=== PATIENT | female | born 1955 | race Caucasian/White ===

== ENCOUNTER 2018-01-09 10:33 | Emergency (ER) | payer MEDICARE ==
[~2018-01-09] VITALS: Ht 165.1 cm; Wt 83.9 kg
[~2018-01-09 10:33] MED LIST: ALBU1.257 IH; ALBU8.5H12 IH; ASPI-816 PO; ATR80PT PO; AZIT-1 PO; CALC-652 PO; CIPDEXPT RIGHT EAR; CIPR-214 PO; CYAN50TA3 PO; CYCL10TA29 PO; ESOM40CA42 PO; EZET10TA41 PO; FENO145T PO; FERR325T24 PO; GABA-549 PO; GUAI600T57 PO; HYDR15CR4 TP; INSU100C14 SQ; LANI SUBQ; LEVI SUBQ; LEVO-3 PO; LEVO-85 PO; LEVO88TA45 PO; LOSA25TA50 PO; LOSA50TA72 PO; METF-415 PO; METH4TAB66 PO; NAPR220C12 PO; NYST15CR32 TP; OXYM15MI14 ENA; PANT40TA65 PO; PRAV40TA78 PO; SUCR1TAB51 PO; TIZA-128 PO; TRAM-420 PO; TRIA15CR40 TP; VITA100T PO; ZOST19404 SQ
--- NOTE | 2018-01-09 10:45 | ER Report ---
History and Physical Time Seen By MD: 10:36 Hx. of Stated Complaint: pt reports pain and swelling in L ear, hears crackling and popping, pain in back of head, has had flu and sinusitis recently; feverish last night, pain swallowing HPI/ROS CHIEF COMPLAINT: left ear pain and drainage. HISTORY OF PRESENT ILLNESS: This is a 62 year old female. She awoke this morning with her hair by ear matted. Pain and swelling of the left ear. Has had problems in the past with ear infections. Having fevers off and on with this. Pain is severe. Allergies: Coded Allergies: oxycodone (Unverified Allergy, Severe, NAUSEA/VOMITING, 12/25/16) SOB Penicillins (Verified Allergy, Intermediate, RASH, 12/25/16) tamsulosin (Verified Allergy, Intermediate, NAUSEA/VOMITING, 12/25/16) latex (Unverified Allergy, Unknown, RASH, 12/25/16) Uncoded Allergies: adhesives (Allergy, Severe, RASH, 01/20/15) lorcet (Allergy, Severe, NAUSEA/VOMITING, 01/20/15) Home Meds Active Scripts Hydrocodone Bit/Acetaminophen (HYDROCODON-ACETAMINOPHEN 5-325) 1 Each Tablet, 1 EACH PO Q4H Y for PAIN, #8 TAB 0 Refills Prov:GABRIELA MORGAN MD 01/09/18 Ciprofloxacin Hcl (CIPROFLOXACIN HCL) 500 Mg Tablet, 500 MG PO Q12H, #14 TAB 0 Refills Prov:GABRIELA MORGAN MD 01/09/18 Ciprofloxacin/Dexamethasone 0.3%-0.1% Otic Stinson (CIPRODEX 0.3%-0.1% OTIC SUSP) 7.5 Ml Soln, 7.5 ML EACH EAR BID, #1 BOT 0 Refills Prov:GABRIELA MORGAN MD 01/09/18 Methylprednisolone (METHYLPREDNISOLONE) 4 Mg Tab.ds.pk, 4 MG PO DIRECTED, #1 PACK 0 Refills Prov:GABRIELA MORGAN MD 07/10/17 Insulin Detemir (LEVEMIR) 100 Unit/Ml Injs, 45 UNITS SUBQ QHS, #2 VIAL 1 Refill Prov:CORRIE MARQUIS MD 02/24/17 Metformin Hcl (METFORMIN HCL) 850 Mg Tablet, 1 TAB PO TID, #90 TAB 1 Refill Prov:CORRIE MARQUIS MD 02/23/17 Losartan Potassium (LOSARTAN POTASSIUM) 50 Mg Tablet, 1 TAB PO QDAY, #90 TAB 4 Refills Prov:CORRIE MARQUIS MD 01/30/17 Tizanidine Hcl (TIZANIDINE HCL) 4 Mg Tablet, 4 MG PO TID Y for MUSCLE SPASMS, # 20 TAB 0 Refills Prov:GABRIELA MORGAN MD 12/26/16 Methylprednisolone (METHYLPREDNISOLONE) 4 Mg Tab.ds.pk, 4 MG PO DIRECTED, #1 PACK 0 Refills Prov:GABRIELA MORGAN MD 12/26/16 Levothyroxine Sodium (LEVOTHYROXINE SODIUM) 100 Mcg Tablet, 1 TAB PO QDAY, #90 TAB 1 Refill Prov:MOI EDWARDS APRN 11/29/16 Ezetimibe (ZETIA) 10 Mg Tablet, 1 TAB PO QDAY, #90 TAB 1 Refill Prov:MOI EDWARDS APRN 11/29/16 Pravastatin Sodium (PRAVASTATIN SODIUM) 40 Mg Tablet, 1 TAB PO QHS, #90 TAB 1 Refill Prov:MOI EDWARDS APRN 11/29/16 Sucralfate (SUCRALFATE) 1 Gm Tablet, 1 GM PO ACHS, #120 TAB 11 Refills Prov:MOI EDWARDS APRN 11/29/16 NYSTATIN 176066 UNT/ML Topical Cream (NYSTATIN 059101 UNT/ML Topical Cream) 15 Gm Cream..g., 1 BRENDA TP TID, #60 GM 1 Refill Apply under breasts and to abdomen until rash has been resolved for 48 hours. Prov:MOI EDWARDS APRN 11/29/16 Insulin Aspart (NOVOLOG) 100 Unit/1 Ml Cartridge, 1-5 UNIT SQ TIDAC, #1 VIAL 1 Refill Per sliding scale Prov:MOI EDWARDS APRN 11/29/16 Fenofibrate Nanocrystallized (FENOFIBRATE) 145 Mg Tablet, 1 TAB PO QDAY, #30 TAB 11 Refills Prov:MOI EDWARDS APRN 08/29/16 Albuterol Sulfate (ALBUTEROL SULFATE) 1.25 Mg/3 Ml Vial.neb, 1.25 MG IH QID Y for WHEEZING, #1 BOX 1 Refill Prov:MOI EDWARDS APRN-Chapin 01/20/15 Guaifenesin (MUCINEX) 600 Mg Tablet.er, 1 TAB PO BID, #30 TAB 12 Refills Prov:MOI EDWARDS APRN-C 01/20/15 Reported Medications Cyanocobalamin (Vitamin B-12) (VITAMIN B-12) 50 Mcg Tablet, 1 TAB PO QDAY 01/20/15 Vitamin E Acid Succinate (VITAMIN E) 100 Unit Tablet, 1 TAB PO QDAY 01/20/15 Calcium Carbonate/Vitamin D3 (CALCIUM 500+D TABLET CHEW) 1 Each Tab.chew, 1 EACH PO DAILY, TAB.CHEW 05/26/14 Aspirin (Children's Aspirin) 81 Mg Tab.chew, 1 TAB PO DAILY 05/26/14 Discontinued Scripts Ciprofloxacin Hcl (CIPROFLOXACIN HCL) 500 Mg Tablet, 500 MG PO Q12H, #14 TAB 0 Refills Prov:GABRIELA MORGAN MD 07/10/17 Tramadol Hcl (TRAMADOL HCL) 50 Mg Tablet, 50 MG PO Q6H Y for PAIN, #12 TAB 0 Refills Prov:GABRIELA MORGAN MD 07/10/17 Ciprofloxacin/Dexamethasone 0.3%-0.1% Otic Stinson (CIPRODEX 0.3%-0.1% OTIC SUSP) 7.5 Ml Soln, 4 GTT RIGHT EAR BID for 7 Days, #1 BOTTLE 0 Refills Prov:GABRIELA MORGAN MD 07/10/17 Pantoprazole Sodium (PANTOPRAZOLE SODIUM) 40 Mg Tablet.dr, 1 TAB PO QDAY, #90 TAB.SR 3 Refills Prov:MOI EDWARDS APRN-[place] 11/29/16 Tramadol Hcl (TRAMADOL HCL) 50 Mg Tablet, 1 TAB PO TID Y for PAIN, #90 TAB 2 Refills Prov:MOI EDWARDS APRN-[place] 11/29/16 Zoster Vaccine Live/Pf (ZOSTAVAX VIAL) 19,400 Unit Vial, 0.64 ML SQ ONCE, #1 ML 0 Refills Prov:MOI EDWARDS APRN 11/29/16 Gabapentin (GABAPENTIN) 300 Mg Capsule, 300 MG PO TID, #90 CAPSULE 12 Refills Prov:MOI EDWARDS ANCILLARY SPECIALIST MANAGER PERIOPERATIVE-C 01/20/15 Reviewed Nurses Notes: Yes Hx Smoking: No Smoking Status: Never Smoker Hx Substance Use Disorder: No Hx Alcohol Use: No Constitutional Vital Sign - Last 24 Hours 01/09/18 01/09/18 01/09/18 01/09/18 10:37 10:37 10:38 10:43 Temp 97.8 Pulse 81 80 85 Resp 18 B/P (MAP) 168/108 168/108 (128) Pulse Ox 99 97 97 O2 Delivery Room Air 01/09/18 01/09/18 01/09/18 01/09/18 10:48 10:53 10:58 11:00 Pulse 70 72 70 B/P (MAP) 148/90 (109) Pulse Ox 98 96 97 01/09/18 01/09/18 01/09/18 01/09/18 11:03 11:08 11:13 11:18 Pulse 68 63 68 73 Pulse Ox 97 98 95 94 01/09/18 01/09/18 11:21 11:23 Pulse 69 B/P (MAP) 147/92 (110) 147/92 (110) Pulse Ox 96 O2 Delivery Room Air Physical Exam General Appearance: Alert, no distress. Eyes: Pupils equal and round no pallor or injection. ENT: Mucous membranes are moist. Oral mucosa is normal in appearance. Posterior oropharynx has no erythema or exudates. Right ear without swelling or pain. Left ear has swelling. Ear canal very swollen and can barely see into it. I can not see any perforation of the TM and it is red and bulging in appearance. DIFFERENTIAL DIAGNOSIS: After history and physical exam differential diagnosis was considered for otitis externa and media, no sign of rupture noted. Medical Decision Making ED Course/Re-evaluation ED Course Ear wick applied. Starting oral Cipro and topical CiproDex Decision to Disposition Date: Jan 09, 2018 Decision to Disposition Time: 11:11 Depart Departure Latest Vital Signs Vital Signs Date Time Temp Pulse Resp B/P (MAP) Pulse Ox O2 Delivery O2 Flow Rate FiO2 01/09/18 11:23 69 147/92 (110) 96 Room Air 01/09/18 10:37 97.8 18 Impression: Primary Impression: Otitis externa of left ear Additional Impression: Otitis media Condition: Improved Disposition: HOME OR SELF-CARE Referrals: MOI EDWARDS APRN MANAGER PERIOPERATIVE-C (PCP) New Scripts Hydrocodone Bit/Acetaminophen (HYDROCODON-ACETAMINOPHEN 5-325) 1 Each Tablet 1 EACH PO Q4H Y for PAIN, #8 TAB 0 Refills Prov: GABRIELA MORGAN MD 01/09/18 Ciprofloxacin Hcl (CIPROFLOXACIN HCL) 500 Mg Tablet 500 MG PO Q12H, #14 TAB 0 Refills Prov: GABRIELA MORGAN MD 01/09/18 Ciprofloxacin/Dexamethasone 0.3%-0.1% Otic Stinson (CIPRODEX 0.3%-0.1% OTIC SUSP) 7.5 Ml Soln 7.5 ML EACH EAR BID, #1 BOT 0 Refills Prov: GABRIELA MORGAN MD 01/09/18 Patient Instructions: Otitis Externa (ED), Otitis Media (ED) Additional Instructions: CiproDex drops, place 4-5 drops in left ear twice a day. Lay with your ear upright to let the drops seep into the ear. Ciprofloxacin 500mg twice a day. Lortab 5/325, one every 4 hours as needed for pain. Ibuprofen 200mg over the counter tablets, take 3-4 tablets every 8 hours as needed for pain. Follow-up next week with your primary care provider or with the ENT specialist, Dr. Abarca, for re-evaluation. Problem Qualifiers Primary Impression: Otitis externa of left ear Otitis externa type: diffuse Chronicity: acute Qualified Codes: H60.312 - Diffuse otitis externa, left ear Additional Impression: Otitis media Otitis media type: suppurative Chronicity: acute Laterality: left Recurrence: not specified as recurrent Spontaneous tympanic membrane rupture: without spontaneous rupture Qualified Codes: H66.002 - Acute suppurative otitis media without spontaneous rupture of ear drum, left ear GABRIELA MORGAN MD Jan 09, 2018 10:45
[2018-01-09] MEDS ORDERED: APAP/HYDROCODONE 325/5 TAB PO ONE (11:05)
[2018-01-09] MEDS ORDERED: CIPROFLOXACIN 500 MG TAB PO ONE (11:05)
[2018-01-09] MEDS ORDERED: CIPR-214 PO (11:13)
[2018-01-09] MEDS ORDERED: CIPDEXPT EACH EAR (11:13)
[2018-01-09] MEDS ORDERED: LOR5/325 PO (11:13)
[2018-01-09 11:23] VITALS: BP 147/92
== END 2018-01-09 11:22 | disposition home or self-care (01) ==
LOC: ER 10:45
DX: H60.312 Diffuse otitis externa, left ear (principal); H66.002 Acute suppurative otitis media without spontaneous rupture of ear drum, left ear
CPT/HCPCS: 99283; A9270

== ENCOUNTER 2018-05-07 17:45 | Emergency (ER) | payer MEDICARE ==
[~2018-05-07 17:45] MED LIST changes: -ASPI-816 PO; +ASPI-870 PO; +CIPDEXPT EACH EAR; -FENO145T PO; +FENO145T36 PO; +LOR5/325 PO
[2018-05-07] MEDS ORDERED: MORPHINE 2 MG/ML SYR IM ONE (18:00)
--- NOTE | 2018-05-07 18:04 | ER Report ---
History and Physical Time Seen By MD: 18:02 Hx. 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 Allergies: Coded Allergies: oxycodone (Unverified Allergy, Severe, NAUSEA/VOMITING, 12/25/16) SOB Penicillins (Verified Allergy, Intermediate, RASH, 12/25/16) tamsulosin (Verified Allergy, Intermediate, NAUSEA/VOMITING, 12/25/16) latex (Unverified Allergy, Unknown, RASH, 12/25/16) Uncoded Allergies: adhesives (Allergy, Severe, RASH, 01/20/15) lorcet (Allergy, Severe, NAUSEA/VOMITING, 01/20/15) Home Meds Active Scripts Tramadol Hcl (ULTRAM) 50 Mg Tablet, 50 MG PO Q4-6H for 7 Days, #20 TAB Prov:RODOLFO DIXON 05/07/18 Hydrocodone Bit/Acetaminophen (HYDROCODON-ACETAMINOPHEN 5-325) 1 Each Tablet, 1 EACH PO Q4H Y for PAIN, #8 TAB 0 Refills Prov:GABRIELA MORGAN MD 01/09/18 Methylprednisolone (METHYLPREDNISOLONE) 4 Mg Tab.ds.pk, 4 MG PO DIRECTED, #1 PACK 0 Refills Prov:GABRIELA MORGAN MD 07/10/17 Insulin Detemir (LEVEMIR) 100 Unit/Ml Injs, 45 UNITS SUBQ QHS, #2 VIAL 1 Refill Prov:CORRIE MARQUIS MD 02/24/17 Metformin Hcl (METFORMIN HCL) 850 Mg Tablet, 1 TAB PO TID, #90 TAB 1 Refill Prov:CORRIE MARQUIS MD 02/23/17 Losartan Potassium (LOSARTAN POTASSIUM) 50 Mg Tablet, 1 TAB PO QDAY, #90 TAB 4 Refills Prov:CORRIE MARQUIS MD 01/30/17 Tizanidine Hcl (TIZANIDINE HCL) 4 Mg Tablet, 4 MG PO TID Y for MUSCLE SPASMS, # 20 TAB 0 Refills Prov:GABRIELA MORGAN MD 12/26/16 Methylprednisolone (METHYLPREDNISOLONE) 4 Mg Tab.ds.pk, 4 MG PO DIRECTED, #1 PACK 0 Refills Prov:GABRIELA MORGAN MD 12/26/16 Levothyroxine Sodium (LEVOTHYROXINE SODIUM) 100 Mcg Tablet, 1 TAB PO QDAY, #90 TAB 1 Refill Prov:MOI EDWARDS APRN-C 11/29/16 Ezetimibe (ZETIA) 10 Mg Tablet, 1 TAB PO QDAY, #90 TAB 1 Refill Prov:MOI EDWARDS APRN-C 11/29/16 Pravastatin Sodium (PRAVASTATIN SODIUM) 40 Mg Tablet, 1 TAB PO QHS, #90 TAB 1 Refill Prov:MOI EDWARDS APRNC 11/29/16 Sucralfate (SUCRALFATE) 1 Gm Tablet, 1 GM PO ACHS, #120 TAB 11 Refills Prov:MOI EDWARDS APRNC 11/29/16 NYSTATIN 312947 UNT/ML Topical Cream (NYSTATIN 370765 UNT/ML Topical Cream) 15 Gm Cream..g., 1 BRENDA TP TID, #60 GM 1 Refill Apply under breasts and to abdomen until rash has been resolved for 48 hours. Prov:MOI EDWARDS APRN 11/29/16 Insulin Aspart (NOVOLOG) 100 Unit/1 Ml Cartridge, 1-5 UNIT SQ TIDAC, #1 VIAL 1 Refill Per sliding scale Prov:MOI EDWARDS APRNC 11/29/16 Fenofibrate Nanocrystallized (FENOFIBRATE) 145 Mg Tablet, 1 TAB PO QDAY, #30 TAB 11 Refills Prov:MOI EDWARDS APRN-C 08/29/16 Albuterol Sulfate (ALBUTEROL SULFATE) 1.25 Mg/3 Ml Vial.neb, 1.25 MG IH QID Y for WHEEZING, #1 BOX 1 Refill Prov:MOI EDWARDS APRN-C 01/20/15 Guaifenesin (MUCINEX) 600 Mg Tablet.er, 1 TAB PO BID, #30 TAB 12 Refills Prov:MOI EDWARDS APRNC 01/20/15 Reported Medications Cyanocobalamin (Vitamin B-12) (VITAMIN B-12) 50 Mcg Tablet, 1 TAB PO QDAY 01/20/15 Vitamin E Acid Succinate (VITAMIN E) 100 Unit Tablet, 1 TAB PO QDAY 01/20/15 Calcium Carbonate/Vitamin D3 (CALCIUM 500+D TABLET CHEW) 1 Each Tab.chew, 1 EACH PO DAILY, TAB.CHEW 05/26/14 Aspirin (Children's Aspirin) 81 Mg Tab.chew, 1 TAB PO DAILY 05/26/14 Discontinued Scripts Ciprofloxacin Hcl (CIPROFLOXACIN HCL) 500 Mg Tablet, 500 MG PO Q12H, #14 TAB 0 Refills Prov:GABRIELA MORGAN MD 01/09/18 Ciprofloxacin/Dexamethasone 0.3%-0.1% Otic Stinson (CIPRODEX 0.3%-0.1% OTIC SUSP) 7.5 Ml Soln, 7.5 ML EACH EAR BID, #1 BOT 0 Refills Prov:GABRIELA MORGAN MD 01/09/18 Past Medical/Surgical History DIABETIC HYPERTENSIVE, ARTHRITIS Reviewed Nurses Notes: Yes Hx Smoking: No Smoking Status: Never Smoker Hx Substance Use Disorder: No Hx Alcohol Use: No Family History of: HTN Constitutional Vital Sign - Last 24 Hours 05/07/18 05/07/18 05/07/18 05/07/18 17:45 17:56 18:00 18:00 Temp 98.1 Pulse ??? 67 Resp 16 B/P (MAP) 182/104 (130) 170/96 (120) 182/104 Pulse Ox 100 O2 Delivery Room Air 05/07/18 05/07/18 05/07/18 18:15 18:30 21:14 Pulse 77 93 Resp 20 B/P (MAP) 155/82 (106) 178/102 (127) Pulse Ox 98 96 O2 Delivery Room Air Physical Exam 62 YEAR IOLD FEMALE [place]. ALERT ANXIOUS MILD DISTRESS, HRR LUNGS CTA, ABRASION ASHA KNEE EFFUSION RIGHT KNEE . POS DRAWER Medical Decision Making ED Course/Re-evaluation ED Course Plain films of the right knee showed a possible line through the patella didn't CAT scan which shows no fracture extensive arthritic changes Re-evaluation Knee immobilizer placed in the emergency room was placed on crutches she did receive 2 mg of IM morphine in the emergency room us and Ultram Procedure Knee immobilizer placed in the ER CMS intact distally after placement and crutch want walking instructions given Decision to Disposition Date: May 07, 2018 Decision to Disposition Time: 21:19 Depart Departure Latest Vital Signs Vital Signs Date Time Temp Pulse Resp B/P (MAP) Pulse Ox O2 Delivery O2 Flow Rate FiO2 05/07/18 21:14 93 20 178/102 (127) 96 Room Air 05/07/18 18:00 98.1 Impression: Primary Impression: Right knee sprain Condition: Improved Disposition: HOME OR SELF-CARE Referrals: MOI EDWARDS APRN-C (PCP) 1 Week New Scripts Tramadol Hcl (ULTRAM) 50 Mg Tablet 50 MG PO Q4-6H for 7 Days, #20 TAB Prov: RODOLFO DIXON 05/07/18 Patient Instructions: Knee Pain (ED) Additional Instructions: WEAR IMMOBILIZER AND USE CRUTCHES UNTIL SEEN BY PCP. NO FRACTURE KNEE SPRAIN RODOLFO DIXON May 07, 2018 18:04
[2018-05-07] MEDS ORDERED: traMADol 50 MG TAB PO ONE (18:55)
--- NOTE | 2018-05-07 19:13 | RADIOLOGY IMAGING REPORT ---
FACILITY: [facility] - [place] PATIENT NAME: Emily Elaine : 1955 MR: [id number] V: [id number] EXAM DATE: ORDERING PHYSICIAN: RODOLFO DIXON TECHNOLOGIST: Location: [facility] - [place] Patient: Emily Elaine : 1955 Visit/Account:[id number] Date of Sevice: 05/07/2018 KNEE 4 VIEW RIGHT HISTORY: FALL 4 view examination of the right knee. FINDINGS: No acute fracture the distal right femur or proximal tibia/fibula. There or chondrocalcinosis changes noted within both menisci with prominent marginal osteophytes noted within the knee joint particular ly with respect to the patellofemoral joint superiorly. Patellar sunrise views there is a prominent d ystrophic calcification extending from the lateral facet.. There is a linear lucency projecting throu gh the patella on the patellar sunrise views along its lateral which does not have a corresponding ob vious change the lateral view. Overlapping femoral condyle is obscuring detail of the patella on the AP and oblique views. Prominent suprapatellar joint effusion. IMPRESSION: 1. 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 No obvious acute fracture. Probable fortuitous artifact producing linear lucency through the lateral pole of the patella. Recommend clinical correlation and additional imaging if clinically ind icated. 2. Prominent suprapatellar joint effusion. Report Dictated By: Kadeem Aleman MD at 05/07/2018 7:01 PM Report E-Signed By: Kadeem Aleman MD at 05/07/2018 7:09 PM WSN:[id number]
--- NOTE | 2018-05-07 20:40 | RADIOLOGY IMAGING REPORT ---
FACILITY: [facility] [place] PATIENT NAME: Emily Elaine : 1955 MR: [id number] V: [id number] EXAM DATE: ORDERING PHYSICIAN: RODOLFO DIXON TECHNOLOGIST: Location: [facility] [place] Patient: Emily Elaine : 1955 Visit/Account:[id number] Date of Sevice: 05/07/2018 KNEE RIGHT W/O CONTRAST HISTORY: Fall CT scan of the left knee with multiple axial slices from the distal femur through the proximal tibia/ fibula. Reconstructed sagittal and coronal scans obtained as well. One of the following dose optimization techniques was utilized in the performance of this exam: Autom ated exposure control; adjustment of the mA and/or kV according to the patient's size; or use of an i terative reconstruction technique. Specific details can be referenced in the facility's radiology C T exam operational policy. FINDINGS: Study demonstrates no obvious acute fracture. There are significant degenerative changes manifesting as significant ossific spurring changes most notably along the anterior inferior aspect of the femur. Additional marginal osteophytes are seen along both the medial and lateral joint compartments as wel l as spurring changes seen along both the medial lateral tibial spines. Dystrophic calcifications and osteochondral body seen lateral to the lateral patellar pole of the patella. Osteochondral bodies no jose within the joint space. The visualized lucency seen on the plain film represented a fortuitous ar tifact. No patellar fracture seen. Prominent joint effusion reidentified. Chondrocalcinosis changes noted within the menisci. IMPRESSION: 1. Severe tricompartment DJD changes most notably involving the patellofemoral joint. Joint effusion. Changes consistent with CPPD. Osteochondral bodies. No evidence of acute fracture. Report Dictated By: Kadeem Aleman MD at 05/07/2018 8:25 PM Report E-Signed By: Kadeem Aleman MD at 05/07/2018 8:35 PM WSN:[id number]
[2018-05-07] MEDS ORDERED: TRAM-627 PO (20:58)
[2018-05-07 21:14] VITALS: BP 178/102
== END 2018-05-07 21:19 | disposition home or self-care (01) ==
LOC: ER 18:33
DX: S83.91XA Sprain of unspecified site of right knee, initial encounter (principal); M17.11 Unilateral primary osteoarthritis, right knee; M25.461 Effusion, right knee; W18.30XA Fall on same level, unspecified, initial encounter
CPT/HCPCS: 73564; 73700; 96372; 99284; A9270; J2270; L1830

== ENCOUNTER 2018-05-08 11:57 | Emergency (ER) | payer MEDICARE ==
[~2018-05-08 11:57] MED LIST changes: -DICL-195 PO; -NITR-105 PO; -ONDA4TAB PO
--- NOTE | 2018-05-08 12:02 | ER Report ---
History and Physical Time Seen By MD: 12:02 (RICARDO MONTOYA DO) HPI/ROS CHIEF COMPLAINT: Fall, right hip pain HISTORY OF PRESENT ILLNESS: Patient is a 62-year-old female here with complaints of a fall at home with right hip pain. Fall occurred shortly prior to arrival. She reports that she was able to crawl until she was able to find something to help herself up. She had a recent fall and was in a knee immobilizer with crutches. He does not recall how she fell this time however she reports that she "just went down". Patient also may have struck her head on the ground but is unsure and she also complains of mild pain in the midline of her C-spine. Denies chest pain, shortness of breath, fevers or chills. REVIEW OF SYSTEMS: Constitutional: No fever, no chills. Eyes: No discharge. ENT: No sore throat. Cardiovascular: No chest pain, no palpitations. Respiratory: No cough, no shortness of breath. Gastrointestinal: No abdominal pain, no vomiting. Genitourinary: No hematuria. Musculoskeletal: Moderate right hip pain Skin: No rashes. Neurological: Mild headache. (RICARDO MONTOYA DO) Allergies: Coded Allergies: oxycodone (Unverified Allergy, Severe, NAUSEA/VOMITING, 12/25/16) SOB Penicillins (Verified Allergy, Intermediate, RASH, 12/25/16) tamsulosin (Verified Allergy, Intermediate, NAUSEA/VOMITING, 12/25/16) latex (Unverified Allergy, Unknown, RASH, 12/25/16) hydrocodone (Verified Adverse Reaction, Severe, NAUSEA/VOMITING, 05/08/18) Uncoded Allergies: adhesives (Allergy, Severe, RASH, 01/20/15) Home Meds Active Scripts Tramadol Hcl (ULTRAM) 50 Mg Tablet, 50 MG PO Q4-6H for 7 Days, #20 TAB Prov:RODOLFO DIXON 05/07/18 Hydrocodone Bit/Acetaminophen (HYDROCODON-ACETAMINOPHEN 5-325) 1 Each Tablet, 1 EACH PO Q4H Y for PAIN, #8 TAB 0 Refills Prov:GABRIELA MORGAN MD 01/09/18 Methylprednisolone (METHYLPREDNISOLONE) 4 Mg Tab.ds.pk, 4 MG PO DIRECTED, #1 PACK 0 Refills Prov:GABRIELA MORGAN MD 07/10/17 Insulin Detemir (LEVEMIR) 100 Unit/Ml Injs, 45 UNITS SUBQ QHS, #2 VIAL 1 Refill Prov:CORRIE MARQUIS MD 02/24/17 Metformin Hcl (METFORMIN HCL) 850 Mg Tablet, 1 TAB PO TID, #90 TAB 1 Refill Prov:CORRIE MARQUIS MD 02/23/17 Losartan Potassium (LOSARTAN POTASSIUM) 50 Mg Tablet, 1 TAB PO QDAY, #90 TAB 4 Refills Prov:CORRIE MARQUIS MD 01/30/17 Tizanidine Hcl (TIZANIDINE HCL) 4 Mg Tablet, 4 MG PO TID Y for MUSCLE SPASMS, # 20 TAB 0 Refills Prov:GABRIELA MORGAN MD 12/26/16 Methylprednisolone (METHYLPREDNISOLONE) 4 Mg Tab.ds.pk, 4 MG PO DIRECTED, #1 PACK 0 Refills Prov:GABRIELA MORGAN MD 12/26/16 Levothyroxine Sodium (LEVOTHYROXINE SODIUM) 100 Mcg Tablet, 1 TAB PO QDAY, #90 TAB 1 Refill Prov:MOI EDWARDS APRN-Chapin 11/29/16 Ezetimibe (ZETIA) 10 Mg Tablet, 1 TAB PO QDAY, #90 TAB 1 Refill Prov:MOI EDWARDS APRN 11/29/16 Pravastatin Sodium (PRAVASTATIN SODIUM) 40 Mg Tablet, 1 TAB PO QHS, #90 TAB 1 Refill Prov:MOI EDWARDS APRN 11/29/16 Sucralfate (SUCRALFATE) 1 Gm Tablet, 1 GM PO ACHS, #120 TAB 11 Refills Prov:MOI EDWARDS APRN-[facility] 11/29/16 NYSTATIN 003456 UNT/ML Topical Cream (NYSTATIN 858384 UNT/ML Topical Cream) 15 Gm Cream..g., 1 BRENDA TP TID, #60 GM 1 Refill Apply under breasts and to abdomen until rash has been resolved for 48 hours. Prov:MOI EDWARDS APRN 11/29/16 Insulin Aspart (NOVOLOG) 100 Unit/1 Ml Cartridge, 1-5 UNIT SQ TIDAC, #1 VIAL 1 Refill Per sliding scale Prov:MOI EDWARDS APRN 11/29/16 Fenofibrate Nanocrystallized (FENOFIBRATE) 145 Mg Tablet, 1 TAB PO QDAY, #30 TAB 11 Refills Prov:MOI EDWARDS APRN 08/29/16 Albuterol Sulfate (ALBUTEROL SULFATE) 1.25 Mg/3 Ml Vial.neb, 1.25 MG IH QID Y for WHEEZING, #1 BOX 1 Refill Prov:MOI EDWARDS APRN 01/20/15 Guaifenesin (MUCINEX) 600 Mg Tablet.er, 1 TAB PO BID, #30 TAB 12 Refills Prov:MOI EDWARDS APRN 01/20/15 Reported Medications Cyanocobalamin (Vitamin B-12) (VITAMIN B-12) 50 Mcg Tablet, 1 TAB PO QDAY 01/20/15 Vitamin E Acid Succinate (VITAMIN E) 100 Unit Tablet, 1 TAB PO QDAY 01/20/15 Calcium Carbonate/Vitamin D3 (CALCIUM 500+D TABLET CHEW) 1 Each Tab.chew, 1 EACH PO DAILY, TAB.CHEW 05/26/14 Aspirin (Children's Aspirin) 81 Mg Tab.chew, 1 TAB PO DAILY 05/26/14 Discontinued Scripts Ciprofloxacin Hcl (CIPROFLOXACIN HCL) 500 Mg Tablet, 500 MG PO Q12H, #14 TAB 0 Refills Prov:GABRIELA MORGAN MD 01/09/18 Ciprofloxacin/Dexamethasone 0.3%-0.1% Otic Stinson (CIPRODEX 0.3%-0.1% OTIC SUSP) 7.5 Ml Soln, 7.5 ML EACH EAR BID, #1 BOT 0 Refills Prov:GABRIELA MORGAN MD 01/09/18 Hx Smoking: No Smoking Status: Never Smoker Hx Substance Use Disorder: No Hx Alcohol Use: No (RICARDO MONTOYA DO) Constitutional Vital Sign - Last 24 Hours 05/08/18 05/08/18 05/08/18 05/08/18 11:57 11:58 11:59 12:12 Temp 98.0 Pulse ??? 120 119 Resp 18 B/P (MAP) 182/115 (137) 182/115 Pulse Ox 97 97 O2 Delivery Room Air 05/08/18 05/08/18 05/08/1819/18 12:15 12:27 12:38 12:42 Pulse 124 123 Resp 13 13 B/P (MAP) 181/122 (141) 197/118 (144) Pulse Ox 95 95 18 18 /18 05/08/18 12:45 13:00 13:12 13:15 Pulse 120 Resp 17 B/P (MAP) ???/??? (1665) ???/??? (1665) 192/113 (139) Pulse Ox 93 18 18 18 05/08/18 13:27 13:30 13:42 13:45 Pulse 125 126 Resp 27 13 B/P (MAP) 195/102 (133) 196/115 (142) Pulse Ox 94 94 05/08/18 05/08/18 05/08/18 05/08/18 14:00 14:15 14:20 14:30 Pulse 116 Resp 22 B/P (MAP) 197/112 (140) 188/111 (136) 187/105 (132) Pulse Ox 93 05/08/1818 18 05/08/18 14:35 14:45 14:50 15:00 Temp 99.0 Pulse 126 121 Resp 19 B/P (MAP) 189/82 (117) Pulse Ox 94 05/08/1818 05/08/18 05/08/18 15:00 15:05 15:06 15:15 Pulse ??? B/P (MAP) ???/??? (166) 157/93 (114) 177/109 (131) 05/08/18 05/08/18 15:20 15:21 Pulse 122 B/P (MAP) 179/102 (127) Pulse Ox 96 (DEVIKA SHELTON BUSINESS ADMINISTRATOR) Physical Exam General Appearance: The patient is alert, has no immediate need for airway protection and no signs of toxicity. Mild distress Eyes: Pupils equal and round no pallor or injection. ENT, Mouth: Mucous membranes are moist. Respiratory: There are no retractions, lungs are clear to auscultation. Cardiovascular: Regular rate and rhythm. [ ] Gastrointestinal: Abdomen is soft and non tender, no masses, bowel sounds normal. Neurological: Moving all extremities spontaneously, no focal neurological deficits, mild weakness to the right lower extremity secondary to pain. Skin: Warm and dry, no rashes. Musculoskeletal: Neck is supple non tender. + Moderate tenderness of the right hip with range of motion testing DIFFERENTIAL DIAGNOSIS: After history and physical exam differential diagnosis was considered for fracture, contusion, sprain (RICARDO MONTOYA DO) Medical Decision Making EKG/Imaging Imaging ADDENDUM #1 Also noted on initial review but omitted from my initial dictation is a small amount of nonspecific fluid along mastoids on the right. Report Dictated By: Sergei Mcbride MD at 05/08/2018 2:55 PM Report E-Signed By: Sergei Mcbride MD at 05/08/2018 2:56 PM ORIGINAL REPORT EXAMINATION: CT Cervical Spine Without Contrast 05/08/2018 12:08 PM HISTORY: fall COMPARISON STUDIES: CT head today is reported separately. Cervical spine CT 05/26 TECHNIQUE: Axial images were obtained from the skull base through the upper thoracic spine without IV contrast administration. Coronal and sagittal reformatted images were obtained from the axial source data. One of the following dose optimization techniques was utilized in the performance of this exam: Automated exposure control; adjustment of the mA and/ or kV according to the patient's size; or use of an iterative reconstruction technique. Specific details can be referenced in the facility's radiology CT exam operational policy. FINDINGS: Pre-vertebral soft tissues: negative Alignment: negative Vertebral bodies: negative Posterior elements: No acute finding. Stable small sclerotic T1 posterior spinous process bony focus is likely an incidental bone island. Disc Spaces: Multilevel spondylosis most notably at C4-5. Visualized soft tissues anterior neck: Carotid atherosclerosis. Nearly 2 cm hyperdense left lobe thyroid nodule. Visualized lung / mediastinum: negative IMPRESSION: 1. No acute bony injury of the cervical spine. 2. Hyperdense left lobe thyroid nodule may have grown comparing to 05/26/2014. Ultrasound would define this more thoroughly with respect to indication for FNA assessment. The patient had only subcentimeter left lobe thyroid nodules demonstrated by ultrasound in 2013. Report Dictated By: Sergei Mcbride MD at 05/08/2018 2:01 PM Report E-Signed By: Sergei Mcbride MD at 05/08/2018 2:08 PM Exam type: FEMUR RIGHT History: fall Comparison: None. Findings: AP and lateral views of the right femur demonstrate no evidence of acute fracture or dislocation. No significant arthritic change identified at the right hip joint. There are tricompartmental degenerative changes at the right knee IMPRESSION: 1. No evidence of acute fracture-dislocation involving the right femur Tricompartmental degenerative changes of the right knee Report Dictated By: Vanessa Armendariz MD at 05/08/2018 1:20 PM Report E-Signed By: Vanessa Armendariz MD at 05/08/2018 1:21 PM EXAMINATION: Head CT without intravenous contrast HISTORY: Fall TECHNIQUE: Contiguous axial images were obtained from the skull base to the vertex without intravenous contrast. Sagittal and coronal reformatted images are also submitted. Dose Lowering Technique One of the following dose optimization techniques was utilized in the performance of this exam: Automated exposure control; adjustment of the mA and/ or kV according to the patient's size; or use of an iterative reconstruction technique. Specific details can be referenced in the facility's radiology CT exam operational policy. COMPARISON: None. FINDINGS: Brain volume: Normal. Ventricles: Normal. Acute ischemic changes: None. Hemorrhage: None. Masses / edema: None. Kendrick-white: Negative. White matter: Normal. Vessels: Negative. Extra-axial: Negative. Calvarium / scalp: Negative. Skull base / visualized face: Negative. Visualized sinuses / orbits: Small amount of fluid is noted in the right mastoid air cells IMPRESSION: Unremarkable head CT without contrast other than incidental note of a small amount of fluid in the right mastoid air cells Report Dictated By: Vanessa Armendariz MD at 05/08/2018 1:45 PM Report E-Signed By: Vanessa Armendariz MD at 05/08/2018 1:50 PM Exam type: HIP RIGHT History: fall Comparison: None. Findings: Two views of the right hip reveal no evidence of acute fracture or dislocation. No significant arthritic change identified at the right hip. Incidentally noted are moderate degenerative changes of the visualized lower lumbar spine. IMPRESSION: 1. No evidence of acute fracture-dislocation involving the right hip Report Dictated By: Vanessa Armendariz MD at 05/08/2018 1:21 PM Report E-Signed By: Vanessa Armendariz MD at 05/08/2018 1:22 PM (DEVIKA SHELTON) ED Course/Re-evaluation ED Course I did take over this patient for Dr. Montoya at the end of her visit. Patient had negative imaging, CT scans as well as x-rays. I discussed findings with patient. Patient states she is able to get up and move around without any difficulty. We will go ahead and discharge patient home at this time. She is to follow-up with her primary care provider. She is return to emergency room if condition worsens. Patient verbalized understanding and agreement with plan. Please refer to Dr. Montoya's note for remainder of visit Decision to Disposition Date: May 08, 2018 Decision to Disposition Time: 15:15 (DEVIKA SHELTON) Depart Departure Latest Vital Signs Vital Signs Date Time Temp Pulse Resp B/P (MAP) Pulse Ox O2 Delivery O2 Flow Rate FiO2 05/08/18 15:21 179/102 (127) 05/08/18 15:20 122 96 05/08/18 15:00 99.0 05/08/18 14:50 19 05/08/18 11:59 Room Air (DEVIKA SHELTON) Impression: Primary Impression: Fall Condition: Improved Disposition: HOME OR SELF-CARE Referrals: MOI EDWARDS APRN-Chapin (PCP) Patient Instructions: Fall Prevention (ED) Additional Instructions: Follow-up with your family doctor next week. Please return promptly if you develop worsening pain, fatigue, fevers or chills. Get plenty of rest. Take Tylenol or Ibuprofen as needed for pain. Return to the ER if condition worsens. Problem Qualifiers Primary Impression: Fall Encounter type: initial encounter Qualified Codes: W19.XXXA - Unspecified fall, initial encounter RICARDO MONTOYA DO May 08, 2018 12:02 DEVIKA SHELTON May 08, 2018 15:17
[2018-05-08] MEDS ORDERED: DIPHTH/TETANUS/ACEL. PERTUSSIS IM ONLY ONE (12:20)
--- NOTE | 2018-05-08 12:45 | EKG ---
FACILITY: [facility] - [place] PATIENT NAME: JENNIFER LOPEZ : [id number] MR: [id number] V: [id number] EXAM DATE: ORDERING PHYSICIAN: RICARDO OLIVER TECHNOLOGIST: DILIP Pina Reason : Blood Pressure : / mmHG Vent. Rate : 124 BPM Atrial Rate : 124 BPM P-R Int : 150 ms QRS Dur : 094 ms QT Int : 318 ms P-R-T Axes : 047 -56 073 degrees QTc Int : 456 ms Sinus tachycardia Possible left atrial enlargement Left axis deviation Nonspecific ST-T findings Virtually no R wave progression through the precordial leads - question previous infarct Nonspecific interventricular conduction delay Abnormal ECG No previous ECGs available Confirmed by YANI CROWLEY ([id number]) on 05/08/2018 4:17:54 PM Referred By: BENITO Confirmed By:YANI CROWLEY
--- NOTE | 2018-05-08 13:25 | RADIOLOGY IMAGING REPORT ---
FACILITY: [facility] PATIENT NAME: Emily Elaine : 1955 MR: [id number] V: [id number] EXAM DATE: ORDERING PHYSICIAN: RICARDO OLIVER TECHNOLOGIST: Location: [facility] - [place] Patient: Emily Elaine : 1955 Visit/Account:[id number] Date of Sevice: 05/08/2018 Exam type: FEMUR RIGHT History: fall Comparison: None. Findings: AP and lateral views of the right femur demonstrate no evidence of acute fracture or dislocation. No significant arthritic change identified at the right hip joint. There are tricompartmental degenera tive changes at the right knee IMPRESSION: 1. No evidence of acute fracture-dislocation involving the right femur Tricompartmental degenerative changes of the right knee Report Dictated By: Vanessa Armendariz MD at 05/08/2018 1:20 PM Report E-Signed By: Vanessa Armendariz MD at 05/08/2018 1:21 PM WSN:[email or web address]
--- NOTE | 2018-05-08 13:28 | RADIOLOGY IMAGING REPORT ---
FACILITY: [facility] - [place] PATIENT NAME: Emliy Elaine : 1955 MR: [id number] V: [id number] EXAM DATE: ORDERING PHYSICIAN: RICARDO OLIVER TECHNOLOGIST: Location: [facility] Patient: Emily Elaine : 1955 Visit/Account:[id number] Date of Sevice: 05/08/2018 Exam type: HIP RIGHT History: fall Comparison: None. Findings: Two views of the right hip reveal no evidence of acute fracture or dislocation. No significant arthr itic change identified at the right hip. Incidentally noted are moderate degenerative changes of the visualized lower lumbar spine. IMPRESSION: 1. No evidence of acute fracture-dislocation involving the right hip Report Dictated By: Vanessa Armendariz MD at 05/08/2018 1:21 PM Report E-Signed By: Vanessa Armendariz MD at 05/08/2018 1:22 PM WSN:[email or web address]
[2018-05-08] MEDS ORDERED: KETOROLAC 30 MG/ML VIAL IVP ONE (13:45)
--- NOTE | 2018-05-08 13:55 | RADIOLOGY IMAGING REPORT ---
FACILITY: [facility] PATIENT NAME: Emily Elaine : 1955 MR: [id number] V: [id number] EXAM DATE: ORDERING PHYSICIAN: RICARDO OLIVER TECHNOLOGIST: Location: [facility] Patient: Emily Elaine : 1955 Visit/Account:[id number] Date of Sevice: 05/08/2018 EXAMINATION: Head CT without intravenous contrast HISTORY: Fall TECHNIQUE: Contiguous axial images were obtained from the skull base to the vertex without intraven ous contrast. Sagittal and coronal reformatted images are also submitted. Dose Lowering Technique One of the following dose optimization techniques was utilized in the performance of this exam: Autom ated exposure control; adjustment of the mA and/or kV according to the patient's size; or use of an i terative reconstruction technique. Specific details can be referenced in the facility's radiology C T exam operational policy. COMPARISON: None. FINDINGS: Brain volume: Normal. Ventricles: Normal. Acute ischemic changes: None. Hemorrhage: None. Masses / edema: None. Kendrick-white: Negative. White matter: Normal. Vessels: Negative. Extra-axial: Negative. Calvarium / scalp: Negative. Skull base / visualized face: Negative. Visualized sinuses / orbits: Small amount of fluid is noted in the right mastoid air cells IMPRESSION: Unremarkable head CT without contrast other than incidental note of a small amount of fluid in the ri ght mastoid air cells Report Dictated By: Vanessa Armendariz MD at 05/08/2018 1:45 PM Report E-Signed By: Vanessa Armendariz MD at 05/08/2018 1:50 PM WSN:[email or web address]
--- NOTE | 2018-05-08 14:13 | RADIOLOGY IMAGING REPORT ---
FACILITY: [facility] PATIENT NAME: Emily Elaine : 1955 MR: [id number] V: [id number] EXAM DATE: ORDERING PHYSICIAN: RICAROD OLIVER TECHNOLOGIST: Location: [facility] - [place] Patient: Emily Elaine : 1955 Visit/Account:[id number] Date of Sevice: 05/08/2018 ADDENDUM #1 Also noted on initial review but omitted from my initial dictation is a small amount of nonspecific f luid along mastoids on the right. Report Dictated By: Sergei Mcbride MD at 05/08/2018 2:55 PM Report E-Signed By: Sergei Mcbride MD at 05/08/2018 2:56 PM ORIGINAL REPORT EXAMINATION: CT Cervical Spine Without Contrast 05/08/2018 12:08 PM HISTORY: fall COMPARISON STUDIES: CT head today is reported separately. Cervical spine CT 05/26/2014 TECHNIQUE: Axial images were obtained from the skull base through the upper thoracic spine without I V contrast administration. Coronal and sagittal reformatted images were obtained from the axial [facility] e data. One of the following dose optimization techniques was utilized in the performance of this exam: Autom ated exposure control; adjustment of the mA and/or kV according to the patient's size; or use of an i terative reconstruction technique. Specific details can be referenced in the facility's radiology C T exam operational policy. FINDINGS: Pre-vertebral soft tissues: negative Alignment: negative Vertebral bodies: negative Posterior elements: No acute finding. Stable small sclerotic T1 posterior spinous process bony focus is likely an incidental bone island. Disc Spaces: Multilevel spondylosis most notably at C4-5. Visualized soft tissues anterior neck: Carotid atherosclerosis. Nearly 2 cm hyperdense left lobe thyr oid nodule. Visualized lung / mediastinum: negative IMPRESSION: 1. No acute bony injury of the cervical spine. 2. Hyperdense left lobe thyroid nodule may have grown comparing to 05/26/2014. Ultrasound would define this more thoroughly with respect to indication for FNA assessment. The patient had only subcentimete r left lobe thyroid nodules demonstrated by ultrasound in 2013. Report Dictated By: Sergei Mcbride MD at 05/08/2018 2:01 PM Report E-Signed By: Sergei Mcbride MD at 05/08/2018 2:08 PM WSN:[id number]
[2018-05-08] MEDS ORDERED: KETOROLAC 15 MG/ML VIAL IVP ONE (15:15)
[2018-05-08] MEDS ORDERED: ACETAMINOPHEN 500 MG TAB PO ONE (15:20)
[2018-05-08 15:21] VITALS: BP 179/102
== END 2018-05-08 15:40 | disposition home or self-care (01) ==
LOC: ER 12:05
DX: M25.551 Pain in right hip (principal); M54.2 Cervicalgia; W18.30XA Fall on same level, unspecified, initial encounter
CPT/HCPCS: 70450; 72125; 73502; 73552; 90471; 90715; 93005; 96374; 99285; A9270; J1885; L0172

== ENCOUNTER → 2018-05-08 | Outpatient (CLI) | payer MEDICARE ==
[~2018-05-08] MED LIST changes: +DICL-195 PO; +NITR-105 PO; +ONDA4TAB PO; +TRAM-627 PO
== END ==
LOC: AMB 11:28
PROVIDERS: ATTEND Nurse Practitioner
DX: M25.551 Pain in right hip (principal); W19.XXXA Unspecified fall, initial encounter
CPT/HCPCS: A0425; A0427

== ENCOUNTER 2018-05-10 11:57 | Emergency (ER) | payer MEDICARE ==
[~2018-05-10 11:57] MED LIST changes: -DICL-195 PO; -NITR-105 PO; -ONDA4TAB PO
--- NOTE | 2018-05-10 12:07 | ER Report ---
History and Physical Time Seen By MD: 12:06 Hx. of Stated Complaint: HYPERGLYCEMIA, N/V, DIZZINESS HPI/ROS CHIEF COMPLAINT: Dizziness, nausea vomiting HISTORY OF PRESENT ILLNESS: 62-year-old female patient presents to emergency room with complaint of dizziness, nausea or vomiting. Patient states she's had some transient dizziness since she had a fall the other day. She states that she also has noted that she has a headache. She states the headache itself is not tender to touch, however the pain is deeper. She denies having any diarrhea , however she has been incredibly nauseous today and vomiting. She states that she did not start vomiting until she gone to her primary care provider. States she was there about 30 minutes and felt very nauseous, then she vomited for approximately 30 minutes straight. She states that she's not had any fevers or chills. She denies having any chest pain or shortness of breath. She states she is not taking any medication outside of what has been prescribed for for this. REVIEW OF SYSTEMS: Respiratory: No cough, no dyspnea. Cardiovascular: No chest pain, no palpitations. Gastrointestinal: As noted above. Musculoskeletal: As noted above Allergies: Coded Allergies: oxycodone (Unverified Allergy, Severe, NAUSEA/VOMITING, 05/10/18) SOB Penicillins (Verified Allergy, Intermediate, RASH, 05/10/18) tamsulosin (Verified Allergy, Intermediate, NAUSEA/VOMITING, 05/10/18) latex (Unverified Allergy, Unknown, RASH, 05/10/18) hydrocodone (Verified Adverse Reaction, Severe, NAUSEA/VOMITING, 05/10/18) Uncoded Allergies: adhesives (Allergy, Severe, RASH, 01/20/15) Home Meds Active Scripts Ondansetron (ZOFRAN ODT) 4 Mg Tab.rapdis, 4 MG PO Q6H Y for NAUSEA/VOMITING, # 20 TAB.SALLY Prov:DEVIKA SHELTON 05/10/18 Diclofenac Sodium (DICLOFENAC SODIUM) 75 Mg Tablet.dr, 75 MG PO BID, #20 TAB Prov:DEVIKA SHELTON 05/10/18 Nitrofurantoin Monohyd/M-Cryst (MACROBID 100 MG CAPSULE) 100 Mg Capsule, 100 MG PO BID, #14 CAPSULE Prov:DEVIKA SHELTON 05/10/18 Tramadol Hcl (ULTRAM) 50 Mg Tablet, 50 MG PO Q4-6H for 7 Days, #20 TAB Prov:RODOLFO DIXON 05/07/18 Hydrocodone Bit/Acetaminophen (HYDROCODON-ACETAMINOPHEN 5-325) 1 Each Tablet, 1 EACH PO Q4H Y for PAIN, #8 TAB 0 Refills Prov:GABRIELA MORGAN MD 01/09/18 Methylprednisolone (METHYLPREDNISOLONE) 4 Mg Tab.ds.pk, 4 MG PO DIRECTED, #1 PACK 0 Refills Prov:GABRIELA MORGAN MD 07/10/17 Insulin Detemir (LEVEMIR) 100 Unit/Ml Injs, 45 UNITS SUBQ QHS, #2 VIAL 1 Refill Prov:CORRIE MARQUIS MD 02/24/17 Metformin Hcl (METFORMIN HCL) 850 Mg Tablet, 1 TAB PO TID, #90 TAB 1 Refill Prov:CORRIE MARQUIS MD 02/23/17 Losartan Potassium (LOSARTAN POTASSIUM) 50 Mg Tablet, 1 TAB PO QDAY, #90 TAB 4 Refills Prov:CORRIE MARQUIS MD 01/30/17 Tizanidine Hcl (TIZANIDINE HCL) 4 Mg Tablet, 4 MG PO TID Y for MUSCLE SPASMS, # 20 TAB 0 Refills Prov:GABRIELA MORGAN MD 12/26/16 Methylprednisolone (METHYLPREDNISOLONE) 4 Mg Tab.ds.pk, 4 MG PO DIRECTED, #1 PACK 0 Refills Prov:GABRIELA MORGAN MD 12/26/16 Levothyroxine Sodium (LEVOTHYROXINE SODIUM) 100 Mcg Tablet, 1 TAB PO QDAY, #90 TAB 1 Refill Prov:MOI EDWARDS APRN-C 11/29/16 Ezetimibe (ZETIA) 10 Mg Tablet, 1 TAB PO QDAY, #90 TAB 1 Refill Prov:MOI EDWARDS APRN-C 11/29/16 Pravastatin Sodium (PRAVASTATIN SODIUM) 40 Mg Tablet, 1 TAB PO QHS, #90 TAB 1 Refill Prov:MOI EDWARDS APRN 11/29/16 Sucralfate (SUCRALFATE) 1 Gm Tablet, 1 GM PO ACHS, #120 TAB 11 Refills Prov:OMI EDWARDS APRN-Chapin 11/29/16 NYSTATIN [id number] UNT/ML Topical Cream (NYSTATIN 474825 UNT/ML Topical Cream) 15 Gm Cream..g., 1 BRENDA TP TID, #60 GM 1 Refill Apply under breasts and to abdomen until rash has been resolved for 48 hours. Prov:MOI EDWARDS APRN-C 11/29/16 Insulin Aspart (NOVOLOG) 100 Unit/1 Ml Cartridge, 1-5 UNIT SQ TIDAC, #1 VIAL 1 Refill Per sliding scale Prov:MOI EDWARDS APRN-C 11/29/16 Fenofibrate Nanocrystallized (FENOFIBRATE) 145 Mg Tablet, 1 TAB PO QDAY, #30 TAB 11 Refills Prov:MOI EDWARDS APRN-C 08/29/16 Albuterol Sulfate (ALBUTEROL SULFATE) 1.25 Mg/3 Ml Vial.neb, 1.25 MG IH QID Y for WHEEZING, #1 BOX 1 Refill Prov:MOI EDWARDS APRN-C 01/20/15 Guaifenesin (MUCINEX) 600 Mg Tablet.er, 1 TAB PO BID, #30 TAB 12 Refills Prov:MOI EDWARDS APRN-C 01/20/15 Reported Medications Cyanocobalamin (Vitamin B-12) (VITAMIN B-12) 50 Mcg Tablet, 1 TAB PO QDAY 01/20/15 Vitamin E Acid Succinate (VITAMIN E) 100 Unit Tablet, 1 TAB PO QDAY 01/20/15 Calcium Carbonate/Vitamin D3 (CALCIUM 500+D TABLET CHEW) 1 Each Tab.chew, 1 EACH PO DAILY, TAB.CHEW 05/26/14 Aspirin (Children's Aspirin) 81 Mg Tab.chew, 1 TAB PO DAILY 05/26/14 Discontinued Scripts Ciprofloxacin Hcl (CIPROFLOXACIN HCL) 500 Mg Tablet, 500 MG PO Q12H, #14 TAB 0 Refills Prov:GABRIELA MORGAN MD 01/09/18 Ciprofloxacin/Dexamethasone 0.3%-0.1% Otic Stinson (CIPRODEX 0.3%-0.1% OTIC SUSP) 7.5 Ml Soln, 7.5 ML EACH EAR BID, #1 BOT 0 Refills Prov:GABRIELA MORGAN MD 01/09/18 Past Medical/Surgical History Patient has a past medical history of neuropathy, CVA, migraines, asthma, COPD, type 2 diabetes. Patient has surgical history of lithotripsy, surgery on hands and left ankle, back surgery, tonsillectomy. Patient has a family medical history of cancer, CAD, stroke, diabetes. Reviewed Nurses Notes: Yes Hx Smoking: No Smoking Status: Never Smoker Hx Substance Use Disorder: No Hx Alcohol Use: No Constitutional Vital Sign - Last 24 Hours 05/10/18 05/10/18 05/10/18 05/10/18 12:00 12:02 12:05 12:30 Temp 97.6 Pulse 81 Resp 20 B/P (MAP) 153/86 153/86 (108) 121/110 (114) ???/??? (1665) Pulse Ox 100 O2 Delivery Room Air 05/10/18 05/10/18 05/10/18 05/10/18 12:47 13:00 13:17 13:21 Pulse 84 Resp 16 B/P (MAP) 147/79 (101) 160/85 (110) 152/86 (108) 151/95 (113) Pulse Ox 86 05/10/18 05/10/18 05/10/18 05/10/18 13:24 13:28 14:05 14:10 Pulse 83 96 93 90 99 Resp 10 11 B/P (MAP) 170/83 (112) 152/86 (108) 151/95 (113) 170/83 (112) Pulse Ox 95 05/10/18 05/10/18 14:14 14:15 Pulse 91 Resp 7 B/P (MAP) 154/94 (114) Pulse Ox 95 Intake and Output 05/10/18 05/10/18 05/11/18 15:00 23:00 07:00 Intake Total 1000 ml Balance 1000 ml Physical Exam General Appearance: The patient is alert, has no immediate need for airway protection and no current signs of toxicity. Respiratory: Chest is non tender, lungs are clear to auscultation. Cardiac: regular rate and rhythm Gastrointestinal: Abdomen is soft and non tender, no masses, bowel sounds normal. Musculoskeletal: Neck: Neck is supple and non tender. Extremities have full range of motion and are non tender. Skin: No rashes or lesions. Neuro: Patient alert and oriented 4, cranial nerves II through XII grossly intact. DIFFERENTIAL DIAGNOSIS: After history and physical exam differential diagnosis was considered for nausea and vomiting including but not limited to gastroenteritis, gastritis, appendicitis, and medication side effect. Medical Decision Making Data Points Result Diagram: 05/10/18 1200 05/10/18 1200 Laboratory Hematology Test 05/10/18 12:00 05/10/18 13:15 Red Blood Count 4.42 M/uL (4.17-5.56) Mean Corpuscular Volume 89.2 fL (80.0-96.0) Mean Corpuscular Hemoglobin 30.3 pg (26.0-33.0) Mean Corpuscular Hemoglobin Concent 34.0 g/dL (32.0-36.0) Red Cell Distribution Width 12.9 % (11.5-14.5) Mean Platelet Volume 8.5 fL (7.2-11.1) Neutrophils (%) (Auto) 81.9 % (39.4-72.5) Lymphocytes (%) (Auto) 10.1 % (17.6-49.6) Monocytes (%) (Auto) 7.1 % (4.1-12.4) Eosinophils (%) (Auto) 0.4 % (0.4-6.7) Basophils (%) (Auto) 0.5 % (0.3-1.4) Nucleated RBC Relative Count (auto) 0.0 /100WBC Neutrophils # (Auto) 9.8 K/uL (2.0-7.4) Lymphocytes # (Auto) 1.2 K/uL (1.3-3.6) Monocytes # (Auto) 0.8 K/uL (0.3-1.0) Eosinophils # (Auto) 0.1 K/uL (0.0-0.5) Basophils # (Auto) 0.1 K/uL (0.0-0.1) Nucleated RBC Absolute Count (auto) 0.00 K/uL Sodium Level 135 mmol/L (137-145) Potassium Level 3.5 mmol/L (3.5-5.0) Chloride Level 96 mmol/L (98-107) Carbon Dioxide Level 23 mmol/L (22-31) Blood Urea Nitrogen 19 mg/dl (7-18) Creatinine 0.80 mg/dl (0.52-1.04) Glomerular Filtration Rate Calc > 60.0 Random Glucose 252 mg/dl (75-110) Osmolality 287 mOSM/K (275-295) Calcium Level 8.5 mg/dl (8.4-10.2) Total Bilirubin 0.9 mg/dl (0.2-1.3) Aspartate Amino Transf (AST/SGOT) 26 U/L (0-35) Alanine Aminotransferase (ALT/SGPT) 22 U/L (0-56) Alkaline Phosphatase 81 U/L (0-126) Troponin I < 0.012 ng/ml Total Protein 7.1 g/dl (6.3-8.2) Albumin 4.0 g/dl (3.5-5.0) Amylase Level 87 U/L (0-110) Lipase 211 U/L (23-300) Acetone, Qualitative Negative Urine Color Yellow Urine Clarity Clear Urine pH 5.0 pH (4.8-9.5) Urine Specific Fromberg 1.017 Urine Protein Negative mg/dL (NEGATIVE) Urine Glucose (UA) 50 mg/dL (NEGATIVE) Urine Ketones Negative mg/dL (NEGATIVE) Urine Blood Negative (NEGATIVE) Urine Nitrite Negative (NEGATIVE) Urine Bilirubin Negative (NEGATIVE) Urine Urobilinogen 2.0 mg/dL (0.2-1.9) Urine Leukocyte Esterase Moderate (NEGATIVE) Urine RBC 3 /HPF (0-2/HPF) Urine WBC 35 /HPF (0-5/HPF) Urine Squamous Epithelial Cells Few /LPF (</=FEW) Urine Bacteria Negative /HPF (NONE-FEW) Urine Hyaline Casts Few /LPF (NONE-FEW) Urine Mucus None /HPF (NONE-FEW) Chemistry Test 05/10/18 12:00 05/10/18 13:15 White Blood Count 11.9 k/uL (4.5-11.0) Red Blood Count 4.42 M/uL (4.17-5.56) Hemoglobin 13.4 g/dL (12.0-16.0) Hematocrit 39.4 % (34.0-47.0) Mean Corpuscular Volume 89.2 fL (80.0-96.0) Mean Corpuscular Hemoglobin 30.3 pg (26.0-33.0) Mean Corpuscular Hemoglobin Concent 34.0 g/dL (32.0-36.0) Red Cell Distribution Width 12.9 % (11.5-14.5) Platelet Count 245 K/uL (150-450) Mean Platelet Volume 8.5 fL (7.2-11.1) Neutrophils (%) (Auto) 81.9 % (39.4-72.5) Lymphocytes (%) (Auto) 10.1 % (17.6-49.6) Monocytes (%) (Auto) 7.1 % (4.1-12.4) Eosinophils (%) (Auto) 0.4 % (0.4-6.7) Basophils (%) (Auto) 0.5 % (0.3-1.4) Nucleated RBC Relative Count (auto) 0.0 /100WBC Neutrophils # (Auto) 9.8 K/uL (2.0-7.4) Lymphocytes # (Auto) 1.2 K/uL (1.3-3.6) Monocytes # (Auto) 0.8 K/uL (0.3-1.0) Eosinophils # (Auto) 0.1 K/uL (0.0-0.5) Basophils # (Auto) 0.1 K/uL (0.0-0.1) Nucleated RBC Absolute Count (auto) 0.00 K/uL Glomerular Filtration Rate Calc > 60.0 Osmolality 287 mOSM/K (275-295) Calcium Level 8.5 mg/dl (8.4-10.2) Total Bilirubin 0.9 mg/dl (0.2-1.3) Aspartate Amino Transf (AST/SGOT) 26 U/L (0-35) Alanine Aminotransferase (ALT/SGPT) 22 U/L (0-56) Alkaline Phosphatase 81 U/L (0-126) Troponin I < 0.012 ng/ml Total Protein 7.1 g/dl (6.3-8.2) Albumin 4.0 g/dl (3.5-5.0) Amylase Level 87 U/L (0-110) Lipase 211 U/L (23-300) Acetone, Qualitative Negative Urine Color Yellow Urine Clarity Clear Urine pH 5.0 pH (4.8-9.5) Urine Specific Fromberg 1.017 Urine Protein Negative mg/dL (NEGATIVE) Urine Glucose (UA) 50 mg/dL (NEGATIVE) Urine Ketones Negative mg/dL (NEGATIVE) Urine Blood Negative (NEGATIVE) Urine Nitrite Negative (NEGATIVE) Urine Bilirubin Negative (NEGATIVE) Urine Urobilinogen 2.0 mg/dL (0.2-1.9) Urine Leukocyte Esterase Moderate (NEGATIVE) Urine RBC 3 /HPF (0-2/HPF) Urine WBC 35 /HPF (0-5/HPF) Urine Squamous Epithelial Cells Few /LPF (</=FEW) Urine Bacteria Negative /HPF (NONE-FEW) Urine Hyaline Casts Few /LPF (NONE-FEW) Urine Mucus None /HPF (NONE-FEW) Toxicology Test 05/10/18 12:00 Acetone, Qualitative Negative Urinalysis Test 05/10/18 13:15 Urine Color Yellow Urine Clarity Clear Urine pH 5.0 pH (4.8-9.5) Urine Specific Fromberg 1.017 Urine Protein Negative mg/dL (NEGATIVE) Urine Glucose (UA) 50 mg/dL (NEGATIVE) Urine Ketones Negative mg/dL (NEGATIVE) Urine Blood Negative (NEGATIVE) Urine Nitrite Negative (NEGATIVE) Urine Bilirubin Negative (NEGATIVE) Urine Urobilinogen 2.0 mg/dL (0.2-1.9) Urine Leukocyte Esterase Moderate (NEGATIVE) Urine RBC 3 /HPF (0-2/HPF) Urine WBC 35 /HPF (0-5/HPF) Urine Squamous Epithelial Cells Few /LPF (</=FEW) Urine Bacteria Negative /HPF (NONE-FEW) Urine Hyaline Casts Few /LPF (NONE-FEW) Urine Mucus None /HPF (NONE-FEW) EKG/Imaging Imaging ABDOMEN AP AND ERECT/DECUB Indication: nausea and vomiting Comparison: None. Findings: 9 mm calcification seen projecting over the lower pole of the left kidney. Normal bowel gas pattern is seen. Degenerative changes in the lumbar spine are noted. IMPRESSION: 1. Calcification projecting of the left kidney lower pole consistent with nephrolithiasis. 2. Normal bowel gas pattern. Report Dictated By: Sergei Guajardo at 05/10/2018 1:29 PM Report E-Signed By: Sergei Guajardo at 05/10/2018 1:31 PM CHEST PA AND LAT Indication: nausea and vomiting Comparison: Chest x-ray 12/26/2016 Findings: Lungs: Clear. Mediastinum/pulmonary vasculature: Heart size and pulmonary vasculature are normal. Bones/soft tissues: Normal. IMPRESSION: Clear lungs. Report Dictated By: Sergei Guajardo at 05/10/2018 1:29 PM Report E-Signed By: Sergei Guajardo at 05/10/2018 1:29 PM ED Course/Re-evaluation ED Course Patient was admitted exam room, history and physical were obtained. Differential diagnoses were considered. On examination lungs are clear, heart is regular, abdomen soft nontender. A acute abdominal series was done as well as a lateral view of the chest. An EKG, CBC, CMP, troponin, amylase, lipase, osmolality, acetone were done. Lab results were unremarkable. Her blood sugar was 252. Urinalysis obtained which did show a moderate leukocyte esterase with 33 white blood cells per high-power field. A culture was ordered. I discussed the findings with the patient. I believe that the nausea, vomiting and the dizziness are more closely associated with the patient's concussion which she likely received 2 days ago with her fall. She did have a negative CT scan at that time and so I did not feel that we need to repeat it at this time. Patient was treated with a liter of normal saline, she did have orthostatic blood pressures done which were unremarkable. Patient did not have any episodes of emesis here in the emergency room. We will go ahead and treat her urinary tract infections with Macrobid, we will treat her concussion with NSAIDs and Zofran. She is return to emergency room if condition worsens. She is to follow-up with her primary care provider next week. I discussed this with the patient who verbalized understanding and agreement with plan. Decision to Disposition Date: May 10, 2018 Decision to Disposition Time: 14:06 Depart Departure Latest Vital Signs Vital Signs Date Time Temp Pulse Resp B/P (MAP) Pulse Ox O2 Delivery O2 Flow Rate FiO2 05/10/18 14:15 91 7 95 05/10/18 14:14 154/94 (114) 05/10/18 12:00 97.6 Room Air Impression: Primary Impression: UTI (urinary tract infection) Additional Impression: Concussion Condition: Improved Disposition: HOME OR SELF-CARE Referrals: MOI EDWARDS APRN HANDYMAN-C (PCP) New Scripts Ondansetron (ZOFRAN ODT) 4 Mg Tab.rapdis 4 MG PO Q6H Y for NAUSEA/VOMITING, #20 TAB.SALLY Prov: DEVIKA SHELTON 05/10/18 Diclofenac Sodium (DICLOFENAC SODIUM) 75 Mg Tablet.dr 75 MG PO BID, #20 TAB Prov: DEVIKA SHELTON 05/10/18 Nitrofurantoin Monohyd/M-Cryst (MACROBID 100 MG CAPSULE) 100 Mg Capsule 100 MG PO BID, #14 CAPSULE Prov: DEVIKA SHELTON 05/10/18 Patient Instructions: Concussion (ED), Urinary Tract Infection in Women (ED) Additional Instructions: Get plenty of rest. Limit activity by pain. Limit TV and computer time. Monitor for confusion, increased irritability, uncontrollable vomiting, worsening headache or difficulty to arouse. Return to the ER if those are to occur. Follow up with your primary care provider in the next week. Increase fluid intake. He may take Tylenol as needed for fevers. Problem Qualifiers Primary Impression: UTI (urinary tract infection) Urinary tract infection type: acute cystitis Hematuria presence: without hematuria Qualified Codes: N30.00 - Acute cystitis without hematuria Additional Impression: Concussion Encounter type: initial encounter Loss of consciousness presence/duration: without LOC Qualified Codes: S06.0X0A - Concussion without loss of consciousness, initial encounter DEVIKA SHELTON May 10, 2018 12:06
[2018-05-10] MEDS ORDERED: EMS NS 0.9%(*) 1000 ML BAG 1,000 ML IV ONE (12:10)
[2018-05-10] MEDS ORDERED: NS(*) 0.9% 1000 ML BAG 1,000 ML IV ONE (12:13)
[2018-05-10 12:22] LABS: PLATELET COUNT, AUTOMATED 245 K/uL (150-450)
--- NOTE | 2018-05-10 13:07 | EKG ---
[facility] PATIENT NAME: JENNIFER LOPEZ : [id number] MR: [id number] V: [id number] EXAM DATE: ORDERING PHYSICIAN: DEVIKA SHELTON TECHNOLOGIST: Test Reason : Blood Pressure : / mmHG Vent. Rate : 073 BPM Atrial Rate : 073 BPM P-R Int : 158 ms QRS Dur : 098 ms QT Int : 450 ms P-R-T Axes : 063 -48 035 degrees QTc Int : 495 ms Normal sinus rhythm Left anterior fascicular block Poor R wave progression through anterior leads Abnormal ECG Nonspecific T wave abnormality now evident in Inferior leads Confirmed by CEDRIC MCGOVERN ([id number]) on 05/10/2018 3:35:23 PM Referred By: Confirmed By:CEDRIC MCGOVERN
--- NOTE | 2018-05-10 13:33 | RADIOLOGY IMAGING REPORT ---
FACILITY: [facility] [place] PATIENT NAME: Emily Elaine : 1955 MR: [id number] V: [id number] EXAM DATE: ORDERING PHYSICIAN: DEVIKA SHELTON TECHNOLOGIST: Location: [facility] Patient: Emily Elaine : 1955 Visit/Account:[id number] Date of Sevice: 05/10/2018 CHEST PA AND LAT Indication: nausea and vomiting Comparison: Chest x-ray 12/26/2016 Findings: Lungs: Clear. Mediastinum/pulmonary vasculature: Heart size and pulmonary vasculature are normal. Bones/soft tissues: Normal. IMPRESSION: Clear lungs. Report Dictated By: Sergei Guajardo at 05/10/2018 1:29 PM Report E-Signed By: Sergei Guajardo at 05/10/2018 1:29 PM WSN:[email or web address]
--- NOTE | 2018-05-10 13:36 | RADIOLOGY IMAGING REPORT ---
FACILITY: [facility] [place] PATIENT NAME: Emily Elaine : 1955 MR: [id number] V: [id number] EXAM DATE: ORDERING PHYSICIAN: DEVIKA SHELTON TECHNOLOGIST: Location: [facility] Patient: Emily Elaine : 1955 Visit/Account:[id number] Date of Sevice: 05/10/2018 ABDOMEN AP AND ERECT/DECUB Indication: nausea and vomiting Comparison: None. Findings: 9 mm calcification seen projecting over the lower pole of the left kidney. Normal bowel ga s pattern is seen. Degenerative changes in the lumbar spine are noted. IMPRESSION: 1. Calcification projecting of the left kidney lower pole consistent with nephrolithiasis. 2. Normal bowel gas pattern. Report Dictated By: Sergei Guajardo at 05/10/2018 1:29 PM Report E-Signed By: Sergei Guajardo at 05/10/2018 1:31 PM WSN:[email or web address]
[2018-05-10] MEDS ORDERED: NITR-105 PO (14:08)
[2018-05-10] MEDS ORDERED: DICL-195 PO (14:08)
[2018-05-10] MEDS ORDERED: ONDA4TAB PO (14:08)
[2018-05-10 14:14] VITALS: BP 154/94
== END 2018-05-10 14:19 | disposition home or self-care (01) ==
LOC: ER 12:00
DX: N30.00 Acute cystitis without hematuria (principal); S06.0X0A Concussion without loss of consciousness, initial encounter; R94.31 Abnormal electrocardiogram [ECG] [EKG]
CPT/HCPCS: 71046; 74019; 81001; 82009; 82040; 82150; 82247; 82310; 82374; 82435; 82565; 82947; 83690; 83930; 84075; 84132; 84155; 84295; 84450; 84460; 84484; 84520; 85025; 93005; 96360; 99284

== ENCOUNTER → 2018-05-10 | Outpatient (CLI) | payer MEDICARE ==
[~2018-05-10] MED LIST changes: +DICL-195 PO; +NITR-105 PO; +ONDA4TAB PO
== END ==
LOC: AMB 11:33
PROVIDERS: ATTEND Nurse Practitioner
DX: E11.65 Type 2 diabetes mellitus with hyperglycemia (principal); R11.2 Nausea with vomiting, unspecified
CPT/HCPCS: A0425; A0427

== ENCOUNTER → 2018-09-06 | Outpatient (CLI) | payer MEDICARE, MEDICAID ==
[~2018-09-06] MED LIST changes: +DICL-195 PO; -LOSA25TA50 PO; +LOSA25TA52 PO; -LOSA50TA72 PO; +LOSA50TA74 PO; -METF-415 PO; +METF-451 PO; +NITR-105 PO; +ONDA4TAB PO
--- NOTE | 2018-09-06 10:36 | RADIOLOGY IMAGING REPORT ---
[place] [facility] [place] Emily Elaine : 1955 MR: [id number] V: [id number] EXAM DATE: ORDERING PHYSICIAN: JEREMY SORENSEN TECHNOLOGIST: Location: [facility] Patient: Emily Elaine : 1955 Visit/Account:[id number] Date of Sevice: 09/06/2018 Exam type: WRIST RIGHT MIN 3 VIEW History: Fall in February, continued pain, carpal tunnel syndrome Comparison: None Findings: There are moderate degenerative changes involving the first carpometacarpal articulation and the firs t MCP joint.. Mild generative changes also noted the radiocarpal joint. There is no gross evidence of acute fracture or dislocation seen. Incompletely imaged on the lateral view are extensive degener ative changes involving the IP joint of the right thumb. IMPRESSION: 1. No evidence of acute fracture-dislocation involving the right wrist although there are multisite degenerative changes as detailed above Report Dictated By: Vanessa Armendariz MD at 09/06/2018 10:29 AM Report E-Signed By: Vanessa Armendariz MD at 09/06/2018 10:32 AM WSN:[email or web address]
== END ==
LOC: RAD 09:33
PROVIDERS: ATTEND Nurse Practitioner Family
DX: M19.041 Primary osteoarthritis, right hand (principal); M19.031 Primary osteoarthritis, right wrist; G56.03 Carpal tunnel syndrome, bilateral upper limbs; Z91.81 History of falling

== ENCOUNTER → 2018-09-07 | Outpatient (CLI) | payer MEDICARE, OTHER | LOC: LAB 09:12 | PROVIDERS: ATTEND Urology | DX: N39.0 Urinary tract infection, site not specified (principal) | CPT/HCPCS: 81001 ==

== ENCOUNTER → 2018-09-10 | Outpatient (CLI) | payer MEDICARE, OTHER ==
--- NOTE | 2018-09-10 13:33 | RADIOLOGY IMAGING REPORT ---
FACILITY: [facility] PATIENT NAME: Emily Elaine : 1955 MR: [id number] V: [id number] EXAM DATE: ORDERING PHYSICIAN: SHARMILA UREÑA TECHNOLOGIST: Location: [facility] Patient: Emily Elaine : 1955 Visit/Account:[id number] Date of Sevice: 09/10/2018 ABDOMEN/PELVIS W/O CONTRAST HISTORY: urolithiasis TECHNIQUE: Axial images acquired through the abdomen/pelvis. Coronal and sagittal reformatting also performed. No IV contrast administered.Dose Lowering Technique One of the following dose optimization techniques was utilized in the performance of this exam: Autom ated exposure control; adjustment of the mA and/or kV according to the patient's size; or use of an i terative reconstruction technique. Specific details can be referenced in the facility's radiology C T exam operational policy. COMPARISON: None. FINDINGS: Visualized lung bases: 4 mm noncalcified lung nodule posterior aspect right middle lobe best seen on image 41 of series 3 1 mm noncalcified nodule anterolateral right middle lobe best seen on image one of series 3 Several small calcifications in the right lower lobe Hepatobiliary: Negative. Spleen: Negative. Adrenals: Negative. Pancreas: Negative. Kidneys ureters and bladder: Two nonobstructing calculi in the right renal collecting system measurin g up to 2 mm in diameter. There also appear to be parapelvic cysts on the right 1.3 x 1 x 1.8 cm nonobstructing calculus lower pole calyx of the left kidney. There are several other tiny 1 mm nonobstructing calculi in the left renal collecting system. There also appear to be parapelvic cysts on the left Genitalia: Negative. GI: Diverticulosis left-sided colon although no CT evidence of acute diverticulitis Vessels/spaces/nodes: Shotty retroperitoneal lymph nodes Bones/soft tissues: Extensive spondylotic changes of the thoracolumbar spine. There also appears to be an old fracture through the superior endplate of L4 are multiple sclerotic foci seen within the s acrum the largest measuring 1 cm in diameter. There is an additional 6 mm sclerotic foci in the left iliac bone. These may represent bone islands present on the lumbar spine series from February 6, 20 17. Additional findings: None pertinent. IMPRESSION: Nonobstructing calculi in both renal collecting systems as described above. Calcified and noncalcified small lung nodules measuring up to 4 mm For multiple nodules measuring les s than 6 mm, in a low risk patient (minimal or absent smoking history, no history of malignancy), no routine followup is recommended. In a high risk patient (smoking or malignancy history), optional 12 month followup can be obtained. Shotty retroperitoneal lymph nodes Diverticulosis left-sided colon Report Dictated By: Vanessa Armendariz MD at 09/10/2018 1:19 PM Report E-Signed By: Vanessa Armendariz MD at 09/10/2018 1:29 PM WSN:[email or web address]
== END ==
LOC: CT 03:02
PROVIDERS: ATTEND Urology
DX: N20.0 Calculus of kidney (principal); R91.1 Solitary pulmonary nodule
CPT/HCPCS: 74176

== ENCOUNTER → 2018-09-14 | Outpatient (CLI) | payer MEDICARE, OTHER | LOC: LAB 09:11 | PROVIDERS: ATTEND Urology | DX: N39.0 Urinary tract infection, site not specified (principal); R82.998 Other abnormal findings in urine | CPT/HCPCS: 87088 ==

== ENCOUNTER → 2019-01-25 | Outpatient (CLI) | payer MEDICARE, OTHER ==
[~2019-01-25] MED LIST changes: +BARIUM SULFATE 176 GM BTL PO ONE; +BARIUM SULFATE 340 GM POWD ONE; -LOSA25TA52 PO; +LOSA25TA57 PO; -LOSA50TA74 PO; +LOSA50TA80 PO; +SCOP1PAT16 TD
--- NOTE | 2019-01-25 09:49 | EKG ---
FACILITY: [facility] [place] PATIENT NAME: JENNIFER LOPEZ : [id number] MR: [id number] V: [id number] EXAM DATE: ORDERING PHYSICIAN: OTTO CHOI TECHNOLOGIST: KEITH Test Reason : PREOP-SCOPE Blood Pressure : / mmHG Vent. Rate : 071 BPM Atrial Rate : 071 BPM P-R Int : 170 ms QRS Dur : 102 ms QT Int : 410 ms P-R-T Axes : 044 -54 029 degrees QTc Int : 445 ms Normal sinus rhythm Left axis deviation Cannot rule out Anterior infarct (cited on or before 25-JAN-2019) Abnormal ECG When compared with ECG of 10-MAY-2018 12:20, QT has shortened Confirmed by CEDRIC MCGOVERN ([id number]) on 01/25/2019 11:18:54 PM Referred By: JIMBO Confirmed By:CEDRIC MCGOVERN
--- NOTE | 2019-01-25 13:42 | RADIOLOGY IMAGING REPORT ---
FACILITY: [facility] - [place] PATIENT NAME: Emily Elaine : 1955 MR: [id number] V: [id number] EXAM DATE: ORDERING PHYSICIAN: OTTO CHOI TECHNOLOGIST: Location: [facility] - [place] Patient: Emily Elaine : 1955 Visit/Account:[id number] Date of Sevice: 01/25/2019 Double contrast esophagram. HISTORY: Dysphagia, regurgitation. COMPARISON: None. The patient swallowed thin barium, thick barium, and gas crystals without difficulty. The barium [place] is propelled to the back of the tongue and then swallowed symmetrically through the lateral food c hannels. No laryngeal penetration or tracheal aspiration. A minimal muscular bar is present at the cricopharyngeus. Cricopharyngeal opening is otherwise normal. Moderate tertiary contractions are pr esent in the distal half of the esophagus. A small direct hiatal hernia is present. Mild spontaneou s reflux occurs into the lower esophageal third. No esophageal masses or ulcerations are identified. A small diverticulum is present along the third portion of the duodenum. FLUOROSCOPY TIME: 0.7 minutes. DOSE: DAP was 662.82 microGy*m2. IMPRESSION: Moderate esophageal dysmotility. Small direct hiatal hernia. Mild gastroesophageal reflux. Report Dictated By: Lopez Martin MD at 01/25/2019 1:31 PM Report E-Signed By: Lopez Martin MD at 01/25/2019 1:36 PM WSN:[id number]
== END ==
LOC: RAD 02:30
PROVIDERS: ATTEND Surgery
DX: K22.4 Dyskinesia of esophagus (principal); K44.9 Diaphragmatic hernia without obstruction or gangrene; K21.9 Gastro-esophageal reflux disease without esophagitis
CPT/HCPCS: 74220; 93005

== ENCOUNTER 2019-02-13 01:11 | Day surgery (SDC) | payer MEDICARE, OTHER ==
[~2019-02-13] VITALS: Ht 165.1 cm; Wt 81.6 kg
[~2019-02-13 01:11] MED LIST changes: +AMLO-125 PO; -BARIUM SULFATE 176 GM BTL PO ONE; -BARIUM SULFATE 340 GM POWD ONE; +GUAI100G4 PO; +LOSA-44 PO
[2019-02-13] MEDS ORDERED: NORMOSOL R SOLN(*) 1000 ML BAG 1,000 ML IV PRN (05:00)
[2019-02-13] MEDS ORDERED: LIDOCAINE/SOD BICARB 8.4% SYR ID ONE (05:00)
[2019-02-13 06:11] VITALS: BP 156/89
[2019-02-13] MEDS ORDERED: PROPOFOL EMUL(*) 10MG/ML 20 ML 20 ML ONE ×2 (07:02→07:37)
[2019-02-13 08:06] VITALS: BP 126/73
--- NOTE | 2019-02-13 08:06 | NUR ---
0806- PT BROUGHT TO STEP DOWN BAY 1, PT IN LL POSITION UNRESPONSIVE AT THIS TIME, PT ON 3LPM VIA HF NC, MAINTAINING SATS, RESP, AIRWAY WILL CONTINUE TO MONITOR, VSS, SBAR REPORT FROM DR. PRUITT AND Dora MOORE RN 0808- PT EYES OPEN, NON VERBAL PT REMAINS DROWSY, BACK TO SLEEP 08- DECREASED O2 TO 1LPM VIA HF O2, PT MAINTAINING SATS, RESP, AIRWAY 0815- DR. CHOI AT BEDSIDE, PT SLEEPING
--- NOTE | 2019-02-13 08:14 | Short(Outpt) Discharge Summary ---
Discharge Summary Reason for Hosp/Final Diag: (1) GERD (gastroesophageal reflux disease) Status: Chronic Hospital Course & Plan: EGD completed without problems, normal. (2) Regurgitation and rechewing of food Status: Chronic (3) Dysphagia Status: Chronic (4) Family history of colon cancer in father Hospital Course & Plan: Colonoscopy completed without problems, normal. Departure Discharge to: Home, Self Care Discharge Instructions Home Meds Active Scripts Scopolamine (Scopolamine) 1 Mg/3 Day Patch.td.3, 1 PATCH.72H TD ONCE, #1 PATCH.72H 0 Refills Prov:OTTO CHOI MD 01/16/19 Insulin Detemir (LEVEMIR) 100 Unit/Ml Injs, 27 UNITS SUBQ QHS, #2 VIAL 1 Refill Prov:OTTO CHOI MD 01/16/19 Ondansetron (ZOFRAN ODT) 4 Mg Tab.rapdis, 4 MG PO Q6H PRN for NAUSEA/VOMITING, #20 TAB.SALLY Prov:DEVIKA SHELTONP 05/10/18 Diclofenac Sodium (DICLOFENAC SODIUM) 75 Mg Tablet.dr, 75 MG PO BID, #20 TAB Prov:DEVIKA SHELTON 05/10/18 Tramadol Hcl (ULTRAM) 50 Mg Tablet, 50 MG PO Q4-6H for 7 Days, #20 TAB Prov:RODOLFO DIXON APRN-C 05/07/18 Metformin Hcl (METFORMIN HCL) 850 Mg Tablet, 1 TAB PO TID, #90 TAB 1 Refill Prov:CORRIE MARQUIS MD 02/23/17 Losartan Potassium (LOSARTAN POTASSIUM) 50 Mg Tablet, 1 TAB PO QDAY, #90 TAB 4 Refills Prov:CORRIE MARQUIS MD 01/30/17 Tizanidine Hcl (TIZANIDINE HCL) 4 Mg Tablet, 4 MG PO TID PRN for MUSCLE SPASMS, #20 TAB 0 Refills Prov:GABRIELA MORGAN MD 12/26/16 Levothyroxine Sodium (LEVOTHYROXINE SODIUM) 100 Mcg Tablet, 1 TAB PO QDAY, #90 TAB 1 Refill Prov:MOI EDWARDS APRN [employer] REPROCESS OPERATOR-C 11/29/16 Ezetimibe (ZETIA) 10 Mg Tablet, 1 TAB PO QDAY, #90 TAB 1 Refill Prov:MOI EDWARDS APRN 11/29/16 Pravastatin Sodium (PRAVASTATIN SODIUM) 40 Mg Tablet, 1 TAB PO QHS, #90 TAB 1 Refill Prov:MOI EDWARDS APRN 11/29/16 Sucralfate (SUCRALFATE) 1 Gm Tablet, 1 GM PO ACHS, #120 TAB 11 Refills Prov:MOI EDWARDS APRN 11/29/16 NYSTATIN [id number] UNT/ML Topical Cream (NYSTATIN 396843 UNT/ML Topical Cream) 15 Gm Cream..g., 1 BRENDA TP TID, #60 GM 1 Refill Apply under breasts and to abdomen until rash has been resolved for 48 hours. Prov:MOI EDWARDS APRN 11/29/16 Insulin Aspart (NOVOLOG) 100 Unit/1 Ml Cartridge, 1-5 UNIT SQ TIDAC, #1 VIAL 1 Refill Per sliding scale Prov:MOI EDWARDS APRN 11/29/16 Fenofibrate Nanocrystallized (FENOFIBRATE) 145 Mg Tablet, 1 TAB PO QDAY, #30 TAB 11 Refills Prov:MOI EDWARDS APRN 08/29/16 Albuterol Sulfate (ALBUTEROL SULFATE) 1.25 Mg/3 Ml Vial.neb, 1.25 MG IH QID PRN for WHEEZING, #1 BOX 1 Refill Prov:MOI EDWARDS APRN 01/20/15 Reported Medications Losartan/Hydrochlorothiazide (HYZAAR 100-25 TABLET) 1 Each Tablet, 1 EACH PO QDAY 02/05/19 Amlodipine Besylate (AMLODIPINE BESYLATE) 5 Mg Tablet, 1 TAB PO QAM, TAB 02/05/19 Pantoprazole Sodium (PANTOPRAZOLE SODIUM) 40 Mg Tablet.dr, 40 MG PO QDAY, TAB.SR 02/05/19 Guaifenesin (MUCINEX) 100 Mg Gran.pack, 100 MG PO PRN 02/05/19 Calcium Carbonate/Vitamin D3 (CALCIUM 500+D TABLET CHEW) 1 Each Tab.chew, 1 EACH PO DAILY, TAB.CHEW 05/26/14 Aspirin (Children's Aspirin) 81 Mg Tab.chew, 1 TAB PO DAILY 05/26/14 Diet: Regular Activity: As Tolerated Special Instructions: Your upper endoscopy was completed without any problems. I didn't find any inflammation, narrowing, cancer, or other problems. Based on the esophagram (the x-ray test where you swallowed the contrast) your esophagus doesn't push the food into your stomach as effectively as it used to. Because of this, if you eat too fast or too large a bite and don't chew it well it may hang up in your esophagus. This is a benign condition but you should avoid eating large meals, eating too fast, or eating large chunks of food and chew your food very thoroughly and EAT SLOWLY so your esophagus can keep up. Your colonoscopy was also completed without problems and your prep was excellent (Good Job!!). It was completely normal. I recommend that your next colonoscopy be in 5 years due to your family history of colon cancer. Problem Qualifiers (1) GERD (gastroesophageal reflux disease): Esophagitis presence: without esophagitis Qualified Codes: K21.9 - Gastro- esophageal reflux disease without esophagitis (2) Dysphagia: Dysphagia type: esophageal phase Qualified Codes: R13.10 - Dysphagia, unspecified OTTO CHOI MD Feb 13, 2019 08:14
[2019-02-13 08:15] VITALS: BP 138/81
--- NOTE | 2019-02-13 08:20 | NUR ---
0820- NO FAMILY IN 08- PT AWAKE, [place], PLACED HEARING AIDS, PLACED PT ON RA
[2019-02-13 08:30] VITALS: BP 151/90
--- NOTE | 2019-02-13 08:30 | NUR ---
0830- PT TOLERATING CRANBERRY JUICE
--- NOTE | 2019-02-13 08:40 | NUR ---
0835- UPDATED FAMILY IN WR
--- NOTE | 2019-02-13 08:41 | NUR ---
0841- SL IV 0842- ORTHOSTATIC VSS 0846- PT UP TO RESTROOM, STEADY GAIT NOTED 0849- D/C IV WITH CATH INTACT, PRESSURE DRESSING APPLIED WITH GAUZE AND COBAND 0850- DR. CHOI AT BEDSIDE DISCUSSING RESULTS WITH PT
[2019-02-13 08:42] VITALS: BP 142/104
[2019-02-13 08:45] VITALS: BP 133/88
--- NOTE | 2019-02-13 08:55 | NUR ---
0855- PT DRESSED, FAMILY BROUGHT BACK TO [place] [facility] 0858- REVIEWED D/C INSTRUCTIONS WITH FAMILY AND PT 0900- PT AMBULATORY TO [facility], ACCOMPANIED BY PRIYANKA CUMMINGS AND SON JM
== END 2019-02-13 09:00 | disposition home or self-care (01) ==
LOC: OR 01:11
PROVIDERS: ATTEND Surgery
DX: Z12.11 Encounter for screening for malignant neoplasm of colon (principal); Z80.0 Family history of malignant neoplasm of digestive organs; E11.9 Type 2 diabetes mellitus without complications
CPT/HCPCS: 00813; 36416; 43235; 82948; G0121; J2704

== ENCOUNTER → 2019-02-14 | Outpatient (CLI) | payer MEDICARE, OTHER ==
--- NOTE | 2019-02-14 14:38 | RADIOLOGY IMAGING REPORT ---
FACILITY: [facility] PATIENT NAME: Emily Elaine : 1955 MR: [id number] V: [id number] EXAM DATE: ORDERING PHYSICIAN: MAGALIE NAIDU TECHNOLOGIST: Location: [facility] - [place] Patient: Emily Elaine : 1955 Visit/Account:[id number] Date of Sevice: 02/14/2019 EXAMINATION: CT Lumbar spine without intravenous contrast HISTORY: Fall COMPARISON: Radiographs December 26, 2016 TECHNIQUE: Axial images were obtained through the lumbar spine without IV contrast administration. C oronal and sagittal reformatted images were generated from the source data. One of the following dose optimization techniques was utilized in the performance of this exam: autom ated exposure control; adjustment of the mA and/or kV according to patient size; or use of iterative reconstruction technique. Specific details can be referenced in the facility's radiology CT exam ope rational policy. FINDINGS: Alignment: Mild unchanged convexity left scoliosis. Vertebral bodies and posterior elements: Chronic mild wedging of the anterior upper L4 vertebral body is better visualized by CT but likely unchanged. Otherwise unremarkable vertebral body heights. No a cute fracture identified. Multiple sclerotic likely benign bone islands in the left iliac bone and sacrum. Disc Spaces: Severe unchanged T12-L1, L2-3, L4-5 and L5-S1 disc space degeneration. Posterior endplat e spurring at multiple levels. Hardware: None. Other: Multilevel foraminal narrowing most pronounced at L4-5 and L5-S1 and not well characterized by CT. Visualized chest/abdominal structures: Left renal calculi noted. IMPRESSION: 1. No acute finding. 2. Mild anterior upper L4 vertebral body wedging is better visualized by CT but likely unchanged allo wing for technique differences. 3. Severe multilevel disc space degeneration. Report Dictated By: Cain Rob MD at 02/14/2019 2:27 PM Report E-Signed By: Cain Rob MD at 02/14/2019 2:34 PM WSN:[id number]
== END ==
LOC: CT 00:47
PROVIDERS: ATTEND Nurse Practitioner
DX: M47.894 Other spondylosis, thoracic region (principal); M51.37 Other intervertebral disc degeneration, lumbosacral region
CPT/HCPCS: 72131

== ENCOUNTER → 2019-02-28 | Outpatient (CLI) | payer MEDICARE, OTHER | LOC: LAB 08:14 | PROVIDERS: ATTEND Nurse Practitioner | DX: E78.5 Hyperlipidemia, unspecified (principal); E11.8 Type 2 diabetes mellitus with unspecified complications | CPT/HCPCS: 36415; 82040; 82247; 82310; 82374; 82435; 82465; 82565; 82947; 83036; 83718; 84075; 84132; 84155; 84295; 84450; 84460; 84478; 84520 ==

== ENCOUNTER 2019-03-29 02:09 | Day surgery (SDC) | payer MEDICARE, OTHER ==
[~2019-03-29] VITALS: Ht 165.1 cm; Wt 83.5 kg
[2019-03-29] VITALS (9 sets, daily range): BP systolic 128–172; BP diastolic 84–118
[~2019-03-29 02:09] MED LIST changes: +OMEP-125 PO
[2019-03-29] MEDS ORDERED: PROPOFOL EMUL(*) 10MG/ML 20 ML 60 ML ONE (07:36)
[2019-03-29] MEDS ORDERED: LIDOCAINE MPF 1% 5 ML VIAL ONE (07:36)
[2019-03-29] MEDS ORDERED: ONDANSETRON 4 MG/2 ML VIAL ONE (07:40)
[2019-03-29] MEDS ORDERED: LIDOCAINE/SOD BICARB 8.4% SYR ID ONE (08:00)
[2019-03-29] MEDS ORDERED: NORMOSOL R SOLN(*) 1000 ML BAG 1,000 ML IV PRN (08:00)
[2019-03-29] MEDS ORDERED: fentaNYL CITR 100 MCG/2 ML AMP ONE ×2 (08:03)
[2019-03-29] MEDS ORDERED: KETAMINE HCL-NS 50 MG/5 ML SYR ONE (08:06)
[2019-03-29] MEDS ORDERED: MIDAZOLAM 2 MG/2 ML VIAL ONE (08:07)
[2019-03-29] MEDS ORDERED: traMADol 50 MG TAB ONE (11:09)
--- NOTE | 2019-03-29 11:36 | NUR ---
pt sleepy, states she is not ready to get up out of bed yet. blood pressure slighlty elevated, discussed with anil Barreto to give labetolol as ordered.
[2019-03-29] MEDS ORDERED: amLODIPine BESYL(*) 5 MG TAB PO ONE (11:45)
--- NOTE | 2019-03-29 11:47 | RADIOLOGY IMAGING REPORT ---
FACILITY: [facility] PATIENT NAME: Emily Elaine : 1955 MR: [id number] V: [id number] EXAM DATE: ORDERING PHYSICIAN: SHARMILA HAJI TECHNOLOGIST: Location: [facility] [place] Patient: Emily Elaine : 1955 Visit/Account:[id number] Date of Sevice: 03/29/2019 Study: MRI lumbar spine without gadolinium contrast. Indication: Chronic low back pain Comparison study:None Technique:Multiplanar MRI sequences were obtained through the lumbar spine without the use of gadolin ium contrast. Findings:The examination demonstrates the presence of normal alignment of the lumbar vertebrae. There is no abnormal signal identified within the lumbar or sacral vertebrae. The conus medullaris is located posterior to the T12/L1 disc space level. There is no evidence of abnormality of the lumbar nerve roots. Disc spaces: T12/L1: At this level, there is a diffuse disc bulge. There is moderate bilateral neural foraminal s tenosis. There is mild spinal stenosis present. L1/2: At this level, there is a diffuse disc bulge with a superimposed left lateral disc protrusion. There is moderate spinal stenosis present. There is moderate to severe spinal stenosis present. Th ere is effacement of the left lateral recess present. L2/3: At this level, there is a diffuse disc bulge. There is facet and ligamentous hypertrophy. The re is mild spinal stenosis. There is moderate to severe right and moderate left neural foraminal danny nosis. There is effacement of the lateral recesses present bilaterally. L3/4: At this level, there is a mild diffuse disc bulge. There is facet and ligamentous hypertrophy. There is moderate bilateral neural foraminal stenosis. There is no significant spinal stenosis. T here is no evidence of effacement of the lateral recesses. L4/5: At this level, there is a diffuse disc bulge. There is facet and ligamentous hypertrophy. The re is moderate spinal stenosis present. There is moderate to severe right and severe left neural for aminal stenosis. There is effacement of the lateral recesses bilaterally. L5/S1: At this level, there is a diffuse disc bulge. There is a posterior spondylotic ridge present. There is facet and ligamentous hypertrophy. The patient is status post left laminotomy at this [facility] el. There is no significant spinal stenosis. There is bilateral effacement of the lateral recesses. There is moderate to severe right and severe left neural foraminal stenosis. IMPRESSION:Multilevel severe lumbar disc pathology and spondylopathy present as described. There is multilevel significant spinal stenosis present. Please see the body of the report for description of individual disc levels. Report Dictated By: Sigifredo Vance at 03/29/2019 11:36 AM Report E-Signed By: Sigifredo Vance at 03/29/2019 11:42 AM WSN:[id number]
== END 2019-03-29 13:15 | disposition home or self-care (01) ==
LOC: OR 02:09
PROVIDERS: ATTEND Orthopaedic Surgery
DX: M48.061 Spinal stenosis, lumbar region without neurogenic claudication (principal); E11.9 Type 2 diabetes mellitus without complications
CPT/HCPCS: 36416; 72148; 82948; A9270; J2001; J2250; J2405; J2704; J3010; J3490